=== PATIENT | male | born 1975 | race American Indian/Alaskan Native ===

== ENCOUNTER 2017-08-05 06:36 | Emergency (ER) | payer SELFPAY ==
[2017-08-05 06:50] VITALS: O2SAT 98
--- NOTE | 2017-08-05 08:18 | ED PDOC ---
HPI: Psych/Substance Abuse Time Seen by Provider: 08/05/17 07:11 Chief Complaint (Nursing): Psychiatric Evaluation Chief Complaint (Provider): Not sleeping History Per: Patient History/Exam Limitations: no limitations Current Symptoms Are (Timing): Still Present Additional Complaint(s): 42 y/o male with a past medical history of bipolar disorder who presents to the emergency department with a complaint of lack of sleep and weight loss that started about 3.5 weeks ago after discontinuation of medications about 4.5 weeks ago. Reports he has been up for the past 3 1/2 days trying to find a place to live because he is homeless. Denies suicidal or homicidal ideation, auditory or visual hallucinations, chest pain, shortness of breath, nausea, fall , or change in speech. Past Medical History Reviewed: Historical Data, Nursing Documentation, Vital Signs Vital Signs: Last Vital Signs Temp 98.1 F 08/05/17 06:46 Pulse 98 H 08/05/17 06:46 Resp 17 08/05/17 06:46 BP 153/88 H 08/05/17 06:46 Pulse Ox 98 08/05/17 06:46 - Medical History PMH: Bipolar Disorder, Depression - Family History Family History: States: Unknown Family Hx - Social History Current smoker - smoking cessation education provided: Yes (Current Some Days Smoker) Alcohol: Social Drugs: Denies - Allergies Allergies/Adverse Reactions: Allergies Allergy/AdvReac Type Severity Reaction Status Date / Time No Known Allergies Allergy Verified 08/05/17 06:50 Review of Systems ROS Statement: Except As Marked, All Systems Reviewed And Found Negative Constitutional: Positive for: Weight loss (Lack of sleep). Negative for: Other (Fall) Cardiovascular: Negative for: Chest Pain Respiratory: Negative for: Shortness of Breath Gastrointestinal: Negative for: Nausea Neurological: Negative for: Change in Speech Psych: Negative for: Suicidal ideation (Homicidal ideation), Other (Auditory or visual hallucinations) Physical Exam - Reviewed Nursing Documentation Reviewed: Yes Vital Signs Reviewed: Yes - Physical Exam Appears: Positive for: Non-toxic, No Acute Distress Head Exam: Positive for: ATRAUMATIC, NORMAL INSPECTION, NORMOCEPHALIC Skin: Positive for: Normal Color, Warm, Dry Eye Exam: Positive for: Normal appearance ENT: Positive for: Normal ENT Inspection. Negative for: Pharyngeal Erythema Cardiovascular/Chest: Positive for: Regular Rate, Rhythm. Negative for: Murmur Respiratory: Positive for: Normal Breath Sounds. Negative for: Accessory Muscle Use, Respiratory Distress Gastrointestinal/Abdominal: Positive for: Normal Exam, Soft. Negative for: Tenderness Back: Positive for: Normal Inspection. Negative for: L CVA Tenderness, R CVA Tenderness Extremity: Positive for: Normal ROM. Negative for: Tenderness, Pedal Edema Neurologic/Psych: Positive for: Alert, Oriented (x3) - ECG O2 Sat by Pulse Oximetry: 98 (RA) Pulse Ox Interpretation: Normal - Progress ED Course And Treament: 900: Crisis saw pt. Does not meet criteria for admit. Fu outpt. AAOx3. Pt. upset he is being discharged. Is homeless. Medical Decision Making Medical Decision Making: Time: 07:53 Initial Impression: Effect after discontinuing a medication Initial Plan: --Alcohol Serum --CMP --Drug Screen, urine --Urine DIp --CBC w/ diff --Crisis evaluation as ordered --Reevaluation Scribe Attestation: Documented by Wanda Higgins, acting as a scribe for Rashel Soler MD. Provider Scribe Attestation: All medical record entries made by the Scribe were at my direction and personally dictated by me. I have reviewed the chart and agree that the record accurately reflects my personal performance of the history, physical exam, medical decision making, and the department course for this patient. I have also personally directed, reviewed, and agree with the discharge instructions and disposition. Disposition - Clinical Impression Clinical Impression: Bipolar disorder - Patient ED Disposition Is Patient to be Admitted: No Counseled Patient/Family Regarding: Diagnosis, Need For Followup - Disposition Referrals: [facility] [Outside] - 08/07/17 Disposition: Routine/Home Disposition Time: 09:13 Condition: STABLE Additional Instructions: Return if not better in 3 days. Instructions: Bipolar Disorder (ED)
[2017-08-05 09:27] VITALS: BP 126/78; PULSE 78; RESP 19; TEMP 97.7
== END 2017-08-05 09:27 | disposition home or self-care (01) ==
LOC: H.ER 06:36
DX: F31.9 Bipolar disorder, unspecified (principal); F17.200 Nicotine dependence, unspecified, uncomplicated; Z59.0 Homelessness; Z86.59 Personal history of other mental and behavioral disorders